=== PATIENT | male | born 2000 | race Caucasian/White ===

== ENCOUNTER 2018-06-10 18:11 | Emergency (ER) | payer SELFPAY ==
[~2018-06-10] VITALS: Ht 177.8 cm; Wt 144.2 kg
[2018-06-10] MEDS ORDERED: PROAIR HFA8.5 GM INH (19:54)
[2018-06-10] MEDS ORDERED: PREDNISONE20 M1 PO (19:54)
[2018-06-10] MEDS ORDERED: AMOXICILLIN500 M2 PO (19:54)
== END 2018-06-10 20:25 | disposition home or self-care (01) ==
LOC: ED 18:11
DX: J20.9 Acute bronchitis, unspecified (principal); R11.2 Nausea with vomiting, unspecified; F17.200 Nicotine dependence, unspecified, uncomplicated

== ENCOUNTER 2018-09-01 01:38 | Emergency (ER) | payer MEDICAID ==
[~2018-09-01] VITALS: Ht 170.1 cm; Wt 127.0 kg
[~2018-09-01 01:38] MED LIST: AMOXICILLIN500 M2 PO; PREDNISONE20 M1 PO; PROAIR HFA8.5 GM INH
[2018-09-01 02:19] LABS: BASO % 0.2 % (0.0-1.0); EOS # 0.3 10*3/uL (0.0-0.4); EOS % 2.1 % (1.0-4.0); HEMATOCRIT 49.6 % (42.0-52.0); HEMOGLOBIN 16.3 g/dl (14.0-18.0); LYMPH # 3.2 10*3/uL (1.3-4.4); LYMPH % 25.2 % (27.0-41.0); MEAN CORPUSCULAR HGB 30.2 pg (27.0-31.0); MEAN CORPUSCULAR HGB CONC 32.9 g/dl (33.0-37.0); MEAN PLATELET VOLUME 10.2 fl (9.6-12.3); MONO # 0.8 10*3/uL (0.1-1.0); MONO % 6.7 % (3.0-9.0); NEUT # 8.3 10*3/uL (2.3-7.9); NEUT % 65.6 % (47.0-73.0); PLATELET COUNT AUTOMATED 210 10*3/uL (130-400); RED BLOOD COUNT 5.39 10*6/uL (4.50-5.90); RED CELL DISTRI WIDTH 13.5 % (0-14.5); WHITE BLOOD COUNT 12.6 10*3/uL (4.8-10.8)
[2018-09-01 02:31] LABS: BILIRUBIN NEGATIVE (NEGATIVE); BLOOD TRACE-INTACT (NEGATIVE); CLARITY CLEAR (CLEAR); COLOR YELLOW (YELLOW); GLUCOSE NEGATIVE (NEGATIVE); KETONE NEGATIVE (NEGATIVE); LEUKO ESTERASE 1+ (NEGATIVE); NITRITE POSITIVE (NEGATIVE); UROBILINOGEN 0.2 E.U./dl (0.2-1.0)
[2018-09-01 02:41] LABS: BACTERIA TRACE; WBC 31-40 wbc/hpf (0-5)
[2018-09-01 02:41] LABS: ALBUMIN 3.5 gm/dl (3.1-4.5); CREATININE 2.15 mg/dL (0.70-1.30); POTASSIUM 4.2 mmol/L (3.5-5.1); TOTAL PROTEIN 7.2 gm/dL (6.4-8.2)
[2018-09-01] MEDS ORDERED: SEPTDS PO (04:05)
== END 2018-09-01 04:15 | disposition home or self-care (01) ==
LOC: ED 01:38
PROVIDERS: Student in an Organized Health Care Education/Training Program
DX: N39.0 Urinary tract infection, site not specified (principal); K59.00 Constipation, unspecified; F17.200 Nicotine dependence, unspecified, uncomplicated; Z79.2 Long term (current) use of antibiotics; Z79.899 Other long term (current) drug therapy

== ENCOUNTER 2019-04-01 15:09 | Emergency (ER) | payer OTHER ==
[~2019-04-01] VITALS: Ht 175.2 cm; Wt 124.7 kg
[~2019-04-01 15:09] MED LIST changes: +SEPTDS PO
[2019-04-01 16:44] LABS: BILIRUBIN NEGATIVE (NEGATIVE); BLOOD 3+ (NEGATIVE); CLARITY CLOUDY (CLEAR); COLOR YELLOW (YELLOW); GLUCOSE NEGATIVE (NEGATIVE); KETONE NEGATIVE (NEGATIVE); LEUKO ESTERASE 2+ (NEGATIVE); NITRITE POSITIVE (NEGATIVE); UROBILINOGEN 0.2 E.U./dl (0.2-1.0)
[2019-04-01 16:52] LABS: BACTERIA 3+; WBC 31-40 wbc/hpf (0-5)
[2019-04-01 17:25] LABS: BASO # 0.1 10*3/uL (0.0-0.1); BASO % 0.5 % (0.0-1.0); EOS # 0.6 10*3/uL (0.0-0.4); EOS % 5.8 % (1.0-4.0); HEMATOCRIT 46.9 % (42.0-52.0); HEMOGLOBIN 15.2 g/dl (14.0-18.0); LYMPH # 2.2 10*3/uL (1.3-4.4); LYMPH % 20.7 % (27.0-41.0); MEAN CELL VOLUME 91.8 fl (80.0-94.0); MEAN CORPUSCULAR HGB 29.7 pg (27.0-31.0); MEAN CORPUSCULAR HGB CONC 32.4 g/dl (33.0-37.0); MEAN PLATELET VOLUME 10.2 fl (9.6-12.3); MONO # 0.7 10*3/uL (0.1-1.0); MONO % 6.6 % (3.0-9.0); NEUT # 7.1 10*3/uL (2.3-7.9); NEUT % 66.1 % (47.0-73.0); PLATELET COUNT AUTOMATED 218 10*3/uL (130-400); RED BLOOD COUNT 5.11 10*6/uL (4.50-5.90); WHITE BLOOD COUNT 10.7 10*3/uL (4.8-10.8)
[2019-04-01 17:40] LABS: ALBUMIN 3.7 gm/dl (3.1-4.5); CREATININE 2.31 mg/dL (0.70-1.30); POTASSIUM 3.6 mmol/L (3.5-5.1); TOTAL PROTEIN 7.5 gm/dL (6.4-8.2)
[2019-04-01] MEDS ORDERED: CEPHALEXIN500 M1 PO (19:37)
== END 2019-04-01 19:54 | disposition home or self-care (01) ==
LOC: ED
PROVIDERS: Emergency Medicine; Nurse Practitioner Family
DX: N39.0 Urinary tract infection, site not specified (principal); Z87.440 Personal history of urinary (tract) infections

== ENCOUNTER → 2019-05-18 | Outpatient (CLI) | payer OTHER ==
[~2019-05-18] MED LIST changes: +CEPHALEXIN500 M1 PO; +IBU800 MG PO
[2019-05-18 10:42] LABS: COLOR YELLOW (YELLOW)
[2019-05-18 10:43] LABS: BILIRUBIN NEGATIVE (NEGATIVE); CLARITY TURBID (CLEAR); GLUCOSE NEGATIVE (NEGATIVE); KETONE TRACE (NEGATIVE)
[2019-05-18 10:44] LABS: BLOOD 3+ (NEGATIVE); LEUKO ESTERASE 3+ (NEGATIVE); NITRITE POSITIVE (NEGATIVE); PH 6.5 (5.0-9.0); SPECIFIC GRAVITY 1.015 (1.005-1.030); UROBILINOGEN 0.2 E.U./dl (0.2-1.0)
[2019-05-18 10:45] LABS: BACTERIA 4+; RBC TNTC rbc/hpf (0-2); WBC TNTC wbc/hpf (0-5)
== END | disposition home or self-care (01) ==
LOC: CT 09:00 → LAB 09:50
PROVIDERS: Urology
DX: N13.30 Unspecified hydronephrosis (principal); R31.9 Hematuria, unspecified; Z90.5 Acquired absence of kidney

== ENCOUNTER 2019-05-26 11:38 | Emergency (ER) | payer OTHER ==
--- NOTE | ~2019-05-26 | EKG ---
[place], [place] ELECTROCARDIOGRAM REPORT NAME: CHRISTOPHER MARRERO II UNIT #: [id number] ROOM: DOCTOR: EPIPHANY DRAFT REPORT BIRTHDATE: [birth year] [facility] Test Date: 2019-05-26 Test Time: 11:40:05 Pat Name: CHRISTOPHER MARRERO Department: Room: Gender: Automotive Service Director: : 2000 Requested By: KENNETH CHAPA Order Number: [id number] Reading MD: Jatinder Mccauley MD Measurements Intervals [place] Rate: 102 P: 59 PA: 132 QRS: 19 QRSD: 86 T: 26 QT: 347 QTc: 453 Interpretive Statements Sinus tachycardia Electronically Signed On 05-27-2019 8:15:04 PDT by Jatinder Mccauley MD CM:EKGRPT:ELECTROCARDIOGRAM REPORT [id number] KENNETH PEREZ DRAFT REPORT KENNETH CHAPA DO
[~2019-05-26 11:38] MED LIST changes: -IBU800 MG PO
[2019-05-26 11:51] LABS: BASO # 0.1 10*3/uL (0.0-0.1); BASO % 0.3 % (0.0-1.0); EOS # 0.1 10*3/uL (0.0-0.4); EOS % 0.9 % (1.0-4.0); HEMATOCRIT 46.4 % (42.0-52.0); HEMOGLOBIN 15.3 g/dl (14.0-18.0); LYMPH # 2.7 10*3/uL (1.3-4.4); LYMPH % 17.9 % (27.0-41.0); MEAN CELL VOLUME 88.7 fl (80.0-94.0); MEAN CORPUSCULAR HGB 29.3 pg (27.0-31.0); MEAN PLATELET VOLUME 9.6 fl (9.6-12.3); MONO # 0.8 10*3/uL (0.1-1.0); MONO % 5.3 % (3.0-9.0); NEUT # 11.5 10*3/uL (2.3-7.9); NEUT % 75.3 % (47.0-73.0); PLATELET COUNT AUTOMATED 356 10*3/uL (130-400); RED BLOOD COUNT 5.23 10*6/uL (4.50-5.90); RED CELL DISTRI WIDTH 11.8 % (0-14.5); WHITE BLOOD COUNT 15.2 10*3/uL (4.8-10.8)
[2019-05-26 12:28] LABS: ACT PARTIAL THROMBO TIME 27.9 SECONDS (20.0-32.1)
[2019-05-26 12:31] LABS: ALBUMIN 3.6 gm/dl (3.1-4.5); ALKALINE PHOSPHATASE 84 U/L (45-117); BUN 23 mg/dl (7-24); CHLORIDE 102 mmol/L (98-107); CREATININE 3.16 mg/dL (0.70-1.30); POTASSIUM 3.7 mmol/L (3.5-5.1); SGOT/AST 12 IU/L (3-35); SGPT/ALT 14 U/L (12-78); SODIUM 139 mmol/L (136-145); TOTAL PROTEIN 8.1 gm/dL (6.4-8.2)
[2019-05-26 12:32] LABS: TROPONIN I < 0.015 ng/ml (<0.045)
[2019-05-26 13:00] LABS: BILIRUBIN NEGATIVE (NEGATIVE); BLOOD 3+ (NEGATIVE); CLARITY CLOUDY (CLEAR); COLOR YELLOW (YELLOW); GLUCOSE NEGATIVE (NEGATIVE); KETONE TRACE (NEGATIVE); LEUKO ESTERASE 3+ (NEGATIVE); NITRITE POSITIVE (NEGATIVE); RBC 51-100 rbc/hpf (0-2); UROBILINOGEN 0.2 E.U./dl (0.2-1.0); WBC 51-100 wbc/hpf (0-5)
[2019-05-26 13:01] LABS: BACTERIA TRACE
[2019-05-26 13:28] LABS: URINE AMPHETAMINES < 1000 (1000ng/ml); URINE BARBITURATES < 200 (200ng/ml); URINE BENZODIAZEPINES < 200 (200ng/ml); URINE CANNABINOIDS (THC) > 50 (50ng/ml); URINE COCAINE < 300 (300ng/ml); URINE METHADONE < 300 (300ng/ml); URINE OPIATES < 300 (300ng/ml); URINE PHENCYCLIDINE < 25 (25ng/ml)
[2019-05-26] MEDS ORDERED: IBU800 MG PO (13:50)
== END 2019-05-26 13:52 | disposition home or self-care (01) ==
LOC: ED 11:38
PROVIDERS: Emergency Medicine; Nurse Practitioner Family
DX: R09.1 Pleurisy (principal); R42 Dizziness and giddiness; R07.89 Other chest pain; F17.200 Nicotine dependence, unspecified, uncomplicated

== ENCOUNTER 2019-09-07 16:23 | Emergency (ER) | payer OTHER ==
[~2019-09-07] VITALS: Ht 177.8 cm; Wt 99.3 kg
[~2019-09-07 16:23] MED LIST changes: +IBU800 MG PO
[2019-09-07 17:01] LABS: BASO % 0.2 % (0.0-1.0); EOS # 0.1 10*3/uL (0.0-0.4); EOS % 0.5 % (1.0-4.0); HEMATOCRIT 32.3 % (42.0-52.0); HEMOGLOBIN 10.3 g/dl (14.0-18.0); LYMPH # 1.6 10*3/uL (1.3-4.4); LYMPH % 8.2 % (27.0-41.0); MEAN CORPUSCULAR HGB 28.7 pg (27.0-31.0); MEAN CORPUSCULAR HGB CONC 31.9 g/dl (33.0-37.0); MEAN PLATELET VOLUME 9.6 fl (9.6-12.3); MONO # 1.1 10*3/uL (0.1-1.0); MONO % 5.6 % (3.0-9.0); NEUT # 16.4 10*3/uL (2.3-7.9); NEUT % 84.9 % (47.0-73.0); PLATELET COUNT AUTOMATED 419 10*3/uL (130-400); RED BLOOD COUNT 3.59 10*6/uL (4.50-5.90); WHITE BLOOD COUNT 19.3 10*3/uL (4.8-10.8)
[2019-09-07 17:11] LABS: ACT PARTIAL THROMBO TIME 30.2 SECONDS (20.0-32.1); INTERNATIONAL NORM RATIO 1.1 (2.0-3.5)
[2019-09-07 17:31] LABS: ALBUMIN 2.4 gm/dl (3.1-4.5); ALKALINE PHOSPHATASE 93 U/L (45-117); BUN 68 mg/dl (7-24); CHLORIDE 96 mmol/L (98-107); CREATININE 4.94 mg/dL (0.70-1.30); LIPASE 49 U/L (73-393); SGOT/AST 10 IU/L (3-35); SGPT/ALT 13 U/L (12-78); SODIUM 134 mmol/L (136-145); TOTAL PROTEIN 7.9 gm/dL (6.4-8.2)
[2019-09-07 17:38] LABS: TROPONIN I < 0.015 ng/ml (<0.045)
[2019-09-07 21:10] LABS: COLOR YELLOW (YELLOW)
[2019-09-07 21:11] LABS: BLOOD 2+ (NEGATIVE); CLARITY TURBID (CLEAR); LEUKO ESTERASE 3+ (NEGATIVE); PH 7.5 (5.0-9.0); UROBILINOGEN 0.2 E.U./dl (0.2-1.0)
[2019-09-07 21:12] LABS: BILIRUBIN NEGATIVE (NEGATIVE); GLUCOSE NEGATIVE (NEGATIVE); KETONE NEGATIVE (NEGATIVE); NITRITE NEGATIVE (NEGATIVE)
[2019-09-07 21:15] LABS: BACTERIA 3+; RBC 31-40 rbc/hpf (0-2); WBC 21-30 wbc/hpf (0-5)
== END 2019-09-07 20:30 | disposition short-term general hospital (02) ==
LOC: ED 16:23
PROVIDERS: Nurse Practitioner Family
DX: A41.9 Sepsis, unspecified organism (principal); N13.30 Unspecified hydronephrosis; K68.12 Psoas muscle abscess; K92.1 Melena; Z79.2 Long term (current) use of antibiotics; Z79.899 Other long term (current) drug therapy

== ENCOUNTER → 2019-10-15 | Day surgery (SDC) | payer OTHER ==
[~2019-10-15] VITALS: Ht 175.2 cm; Wt 107.0 kg
[~2019-10-15] MED LIST changes: +OXYCODONE HCL20 M1 PO; +[UNRECOGNIZED DRUG - OTHER] PO
[2019-10-15 14:44] VITALS: BP 120/69
[2019-10-15 16:40] VITALS: BP 141/89
[2019-10-15 16:55] VITALS: BP 130/86
[2019-10-15 17:10] VITALS: BP 138/81
== END | disposition home or self-care (01) ==
LOC: SDC 10-12 12:30
DX: K62.5 Hemorrhage of anus and rectum (principal); D12.5 Benign neoplasm of sigmoid colon; E66.01 Morbid (severe) obesity due to excess calories; Z68.34 Body mass index [BMI] 34.0-34.9, adult

== ENCOUNTER → 2019-12-06 | Outpatient (CLI) | payer OTHER ==
[2019-12-06 17:34] LABS: BASO % 0.3 % (0.0-1.0); EOS % 0.3 % (1.0-4.0); HEMATOCRIT 29.4 % (42.0-52.0); HEMOGLOBIN 9.4 g/dl (14.0-18.0); LYMPH # 1.3 10*3/uL (1.3-4.4); LYMPH % 16.8 % (27.0-41.0); MEAN CELL VOLUME 94.8 fl (80.0-94.0); MEAN CORPUSCULAR HGB 30.3 pg (27.0-31.0); MEAN PLATELET VOLUME 10.5 fl (9.6-12.3); MONO # 0.5 10*3/uL (0.1-1.0); MONO % 6.1 % (3.0-9.0); NEUT # 5.9 10*3/uL (2.3-7.9); NEUT % 76.1 % (47.0-73.0); PLATELET COUNT AUTOMATED 112 10*3/uL (130-400); RED CELL DISTRI WIDTH 16.9 % (0-14.5); WHITE BLOOD COUNT 7.7 10*3/uL (4.8-10.8)
[2019-12-06 18:17] LABS: ALBUMIN 3.3 gm/dl (3.1-4.5); CREATININE 2.17 mg/dL (0.70-1.30); POTASSIUM 4.3 mmol/L (3.5-5.1); TOTAL PROTEIN 6.9 gm/dL (6.4-8.2); URIC ACID 6.9 mg/dL (3.5-7.2)
[2019-12-06 18:18] LABS: CEA 2.5 ng/mL
== END | disposition home or self-care (01) ==
LOC: LAB 16:52
PROVIDERS: Internal Medicine Hematology & Oncology
DX: C67.9 Malignant neoplasm of bladder, unspecified (principal); C78.6 Secondary malignant neoplasm of retroperitoneum and peritoneum; C80.1 Malignant (primary) neoplasm, unspecified; C77.9 Secondary and unspecified malignant neoplasm of lymph node, unspecified

== ENCOUNTER → 2020-03-06 | Outpatient (CLI) | payer OTHER | END | disposition home or self-care (01) | LOC: US 02-25 14:00 | DX: K40.90 Unilateral inguinal hernia, without obstruction or gangrene, not specified as recurrent (principal) ==